=== PATIENT | male | born 1970 | race Caucasian/White ===

== ENCOUNTER → 2022-06-08 | Outpatient (CLI) | payer BC ==
--- NOTE | 2022-06-08 17:04 | Diagnostic Imaging Report ---
EXAMINATION: CHEST (PA AND LATERAL) CLINICAL INDICATION: 52-year-old male, cough and wheezing. COMPARISON: None. FINDINGS: Heart size and mediastinal contours are unremarkable. There is no identified pneumothorax. There is no pleural effusion. There is no identified focal airspace consolidation. There are mild degenerative changes of the spine. IMPRESSION: 1. No identified acute cardiopulmonary abnormality. Dictated by: Dictated on workstation # [id number]
== END ==
LOC: RAD 16:41
PROVIDERS: ATTEND Nurse Practitioner Family
DX: R05.9 Cough, unspecified (principal); R06.2 Wheezing
CPT/HCPCS: 71046

== ENCOUNTER → 2022-07-06 | Outpatient (CLI) | payer BC, SELFPAY ==
--- NOTE | 2022-07-06 16:16 | Diagnostic Imaging Report ---
INDICATION: Chest pain CT cardiac calcium score study performed with noncontrast images of the heart. Dose reduction protocol was used. Raw data images demonstrate no mediastinal or hilar adenopathy. Aorta is normal in caliber. Visualized portions of the lung connelly show no focal lesions, the entirety of the lungs are not included on the study. A small hiatal hernia is incidentally noted. CT cardiac calcium score was 0, no significant coronary calcification was identified. IMPRESSION: CT coronary calcium score was 0. Dictated by: Dictated on workstation # [id number]
== END ==
LOC: RAD 10:45
PROVIDERS: ATTEND Internal Medicine Cardiovascular Disease
DX: R07.9 Chest pain, unspecified (principal); R00.2 Palpitations
CPT/HCPCS: 75571

== ENCOUNTER → 2022-07-24 | Outpatient (CLI) | payer BC ==
--- NOTE | 2022-07-24 13:40 | Diagnostic Imaging Report ---
PROCEDURE: CT abdomen and pelvis without contrast. TECHNIQUE: Multiple contiguous axial images were obtained through the abdomen and pelvis without the use of intravenous contrast. Auto Exposure Controls were utilized during the CT exam to meet ALARA standards for radiation dose reduction. INDICATION: History of prostate carcinoma. Prior hernia repair. CT abdomen and pelvis without contrast 07/24/2022. FINDINGS: There is a calcified granuloma at the right lung base with remaining visualized lungs clear. There is a small hiatal hernia. The nonopacified liver and spleen unremarkable. Pancreas, adrenal glands, gallbladder and kidneys unremarkable. There is no hydronephrosis with no ureteral stones appreciated. There is a nonspecific calcification 4.5 mm in size in the right aspect of the dependent aspect of the urinary bladder. This could be a chronic calcification versus a recently passed stone correlate with symptoms. The prostate is prominent with calcifications noted. There is a known history of underlying prostate carcinoma. There is no adenopathy. No free fluid. No free air. Appendix normal. There is diverticular disease with no evidence for acute diverticulitis. Within the osseous structures there are tiny sclerotic foci within the cisco bilaterally. A similar process noted in the left ischial tuberosity. No acute osseous abnormality is appreciated. IMPRESSION: 1. Diverticular disease without evidence for acute diverticulitis. 2. Prostamegaly with known history of prostate carcinoma. 3. Small hiatal hernia. 4. Sclerotic foci within the pelvis as above, most likely bone islands however given the history of prostate carcinoma, followup recommended as clinically warranted. Dictated by: Dictated on workstation # [id number]
--- NOTE | 2022-07-24 15:28 | Diagnostic Imaging Report ---
Indication: Newly diagnosed prostate cancer. Patient was administered 19.8 mCi technetium 99m MDP intravenously and whole-body imaging was performed after a three-hour delay. No prior bone scans are available for comparison. There is normal uptake of activity by the axial and appendicular skeleton. There is uptake by the kidneys with excretion to the urinary bladder. No suspicious foci are identified to suggest osseous metastatic disease. IMPRESSION: No scintigraphic evidence of osseous metastatic disease. Dictated by: Dictated on workstation # [id number]
== END ==
LOC: CARD 12:00
PROVIDERS: ATTEND Urology
DX: N40.0 Benign prostatic hyperplasia without lower urinary tract symptoms (principal); K44.9 Diaphragmatic hernia without obstruction or gangrene; K57.30 Diverticulosis of large intestine without perforation or abscess without bleeding; Z85.46 Personal history of malignant neoplasm of prostate
CPT/HCPCS: 74176; 78306; A9503

== ENCOUNTER → 2022-07-27 | Outpatient (CLI) | payer BC, SELFPAY ==
[2022-07-27 10:12] VITALS: BP 144/105
--- NOTE | 2022-07-28 07:49 | Cardiology Stress Test Report ---
Stress Test Report Date of Procedure/Referring: Date of Procedure: Jul 28, 2022 PCP Admitting Physician Admitting Physician: Attending Physician: Anirudh Arnold MD Indications: CP Baseline Heart Rate: 80 Baseline Blood Pressure: Blood Pressure Systolic: 144 Blood Pressure Diastolic: 105 Baseline EKG: Baseline EKG: NSR Summary/Conclusion: Summary: In summary, the patient started exercising with a baseline heart rate, blood pressure and EKG mentioned above Patient was able to exercise for a total of 9 minutes on Crow protocol, METs 10.5 Maximum heart rate 153 Maximum blood pressure 215/93 Stress EKG, Minimal nondiagnostic changes Recovery EKG , Return to baseline Conclusion: 1. Good exercise tolerance for a total of 9 minutes on Crow protocol, 10.5 METs, achieving 90 percent of maximum expected heart rate 2. Minimal nondiagnostic EKG changes with exercise returned to baseline during recovery 3. No arrhythmia was noted 4. Hypertensive response to exercise with peak blood pressure 215/93 return to baseline during recovery ANIRUDH ARNOLD MD Jul 28, 2022 07:49
== END ==
LOC: CARD 08:40
PROVIDERS: ATTEND Internal Medicine Cardiovascular Disease
DX: I11.9 Hypertensive heart disease without heart failure (principal); I25.10 Atherosclerotic heart disease of native coronary artery without angina pectoris
CPT/HCPCS: 93017; C8929; 93306

== ENCOUNTER 2022-08-03 11:00 | Outpatient (RCR) | payer BC | END 2022-08-22 | disposition home or self-care (01) | LOC: ONC 11:00 | PROVIDERS: ATTEND Radiology Radiation Oncology | DX: C61 Malignant neoplasm of prostate (principal); J45.909 Unspecified asthma, uncomplicated | CPT/HCPCS: 99205 ==

== ENCOUNTER → 2023-02-09 | Outpatient (CLI) | payer BC, OTHER ==
--- NOTE | 2023-02-09 17:20 | Diagnostic Imaging Report ---
PROCEDURE: US Thyroid. TECHNIQUE: Multiple real-time grayscale images were obtained of the thyroid in various projections. INDICATION: Low TSH levels. COMPARISON: None available. FINDINGS: Right thyroid lobe: The right thyroid lobe measures 5.2 x 1.9 x 2.1 cm. There is a solid isoechoic nodule with circumscribed margins and macrocalcification measuring 2.1 x 1.4 x 1.8 cm, TI-RADS 4. Isthmus: The thyroid isthmus measures 0.2 cm. Left thyroid lobe: The left thyroid lobe measures 5.1 x 1.7 x 1.7 cm. There is solid hypoechoic circumscribed nodule that is wider than tall and has no echogenic foci and measures up to 1.7 cm, TI-RADS 3. IMPRESSION:Moderately suspicious right thyroid nodule. Ultrasound-guided FNA is recommended. ACR TI-RADS: TR4 . TI-RADS Recommendations:TR4 - Moderately Suspicious:FNA if >1.5 cm; Follow if > 1.0 cm at 1, 2, 3 and 5 years. Dictated by: Dictated on workstation # [id number]
== END ==
LOC: RAD 12:50
PROVIDERS: ATTEND Nurse Practitioner Family
DX: E04.1 Nontoxic single thyroid nodule (principal)
CPT/HCPCS: 76536

== ENCOUNTER 2023-03-18 09:58 | Outpatient (RCR) | payer BC, OTHER | END 2023-03-22 | disposition home or self-care (01) | LOC: ONC 09:58 | PROVIDERS: ATTEND Radiology Radiation Oncology | DX: C61 Malignant neoplasm of prostate (principal) | CPT/HCPCS: 99213 ==

== ENCOUNTER → 2023-04-08 | Outpatient (CLI) | payer OTHER ==
[~2023-04-08] VITALS: Ht 180.3 cm; Wt 87.7 kg
[~2023-04-08] MED LIST: LIDOCAINE 1% INJ 10 ML VIAL INJ ONE; LIDOCAINE 1% INJ 10 ML VIAL ONE
--- NOTE | 2023-04-08 16:20 | Diagnostic Imaging Report ---
INDICATION: Right lobe thyroid nodule. EXAMINATION: Patient presents for ultrasound-guided fine needle aspiration. PROCEDURE: Patient was brought to the procedure room and placed on table in the supine position. Ultrasound imaging of the neck was performed to evaluate appropriate entry site. The right neck was then prepped and draped in the usual sterile fashion. A small amount of 1% lidocaine was utilized for local anesthesia. Four passes were made into the dominant solid nodule right lobe of the thyroid utilizing 25-gauge needles and fine-needle aspiration technique. Hemostasis was obtained. Patient tolerated the procedure well and left the Department in stable condition. IMPRESSION: Successful ultrasound-guided fine-needle aspiration in the right lobe thyroid nodule. Pathology results are currently pending. Dictated by: Dictated on workstation # [id number]
== END ==
LOC: RAD 14:30
PROVIDERS: ATTEND Physician Assistant
DX: E04.1 Nontoxic single thyroid nodule (principal); E05.90 Thyrotoxicosis, unspecified without thyrotoxic crisis or storm
CPT/HCPCS: 88173; 88305